=== PATIENT | female | born 1975 ===

== ENCOUNTER 2017-05-23 00:26 | Emergency (ER) | payer MEDICAID ==
[2017-05-23] MEDS ORDERED: Sodium Chloride 0.9% 1,000 ML IV STA (01:06)
[2017-05-23 01:26] LABS: BASO # 0.1 K/uL (0.0-0.2); BASO % 0.6 % (0.0-2.0); EOS # 0.3 K/uL (0.0-0.7); EOS % 3.4 % (0.0-4.0); HEMOGLOBIN 12.6 g/dL (11.0-16.0); LYMPH # 2.3 K/uL (1.0-4.3); LYMPH % 24.4 % (20.0-40.0); MEAN CELL VOLUME 89.1 fL (81.0-99.0); MEAN CORPUSCULAR HGB CONC 34.8 g/dL (33.0-37.0); MEAN PLATELET VOLUME 8.7 fL (7.2-11.7); MONO # 1.1 K/uL (0.0-0.8); NEUT # 5.6 K/uL (1.8-7.0); NEUT % 59.6 % (50.0-75.0); RBC 4.05 Mil/uL (3.80-5.20); RED CELL DISTRIBUTION WIDTH 13.8 % (11.5-14.5); WHITE BLOOD COUNT 9.4 K/uL (4.8-10.8)
[2017-05-23 01:34] LABS: ALBUMIN 3.7 g/dL (3.5-5.0); ALT/SGPT 23 U/L (9-52); AST/SGOT 30 U/L (14-36); BLOOD UREA NITROGEN 6 mg/dL (7-17); CALCIUM 8.4 mg/dl (8.6-10.4); GFR AFRICAN-AMERICAN > 60; GFR NON-AFRICAN AMERICAN > 60
[2017-05-23 03:42] LABS: SQUAMOUS EPITHIAL 1 /hpf (0-5); URINE AMORPHOUS SEDIMENT RARE /ul (<OCC); URINE BACTERIA RARE (<OCC); URINE BILIRUBIN NEGATIVE (NEGATIVE); URINE BLOOD 3+ (NEGATIVE); URINE CLARITY Hazy (Clear); URINE COLOR Yellow (YELLOW); URINE GLUCOSE (UA) NORMAL (Normal); URINE LEUKOCYTE ESTERASE NEG Leu/uL (Negative); URINE NITRATE NEGATIVE (NEGATIVE); URINE PROTEIN NEGATIVE (NEGATIVE); URINE UROBILINOGEN NORMAL mg/dL (0.2-1.0)
--- NOTE | 2017-05-23 04:24 | US ---
EXAM: US , Transvaginal CLINICAL HISTORY: 42 years old, female; Signs and symptoms; Lmp or gestational age (in weeks): Unknown/ qhcg---6022.00; Other: Preg/bleeding; ; Additional info: Vaginal bleeding, TECHNIQUE: Real-time transvaginal obstetrical ultrasound of the maternal pelvis and a first trimester with image documentation. Transvaginal imaging was used for better evaluation of the fetus and adnexa. COMPARISON: No relevant prior studies available. FINDINGS: The uterus measures approximately 13 x 8 x 8 cm. The cervix measures 4.4 cm. There is a large fluid-filled saclike structure within the uterus. No yolk sac or pole is identified. Assuming this represents a gestational sac, the diameter corresponds to a gestational age of 8 weeks 1 day. Hypoattenuating uterine fibroids are identified the largest measuring 2.4 cm in diameter. The maternal ovaries are identified and appear normal with a dominant follicle noted in the left ovary. Color flow and doppler vascular waveforms were demonstrated to both ovaries. There is no significant free fluid. IMPRESSION: Fluid-filled intrauterine sac without yolk sac or pole or heart rate. Diameters would correspond to a gestational age of 8 weeks 1 day. EXAM: US First Trimester, Transabdominal EXAM DATE/TIME: 05/23/2017 1:06 AM CLINICAL HISTORY: 42 years old, female; Signs and symptoms; Lmp or gestational age (in weeks): Unknown/ qhcg---6022.00; Other: Preg/bleeding; ; Additional info: Vaginal bleeding, TECHNIQUE: Real-time transabdominal obstetrical ultrasound of the maternal pelvis and a first trimester with image documentation. COMPARISON: No relevant prior studies available. FINDINGS: The uterus measures approximately 13 x 8 x 8 cm. The cervix measures 4.4 cm. There is a large fluid-filled saclike structure within the uterus. No yolk sac or pole is identified. Assuming this represents a gestational sac, the diameter corresponds to a gestational age of 8 weeks 1 day. Hypoattenuating uterine fibroids are identified the largest measuring 2.4 cm in diameter. The maternal ovaries are identified and appear normal with a dominant follicle noted in the left ovary. Color flow and doppler vascular waveforms were demonstrated to both ovaries. There is no significant free fluid.
--- NOTE | 2017-05-23 04:37 | C.PDOC ---
History Of Present Illness 42 year old female who is 13 weeks by date with a Hx of IDDM, presents to the ER with a complaint of pelvic cramps and vaginal bleeding since last night. Patient states she has not seen her [employer]PER[employer]OR [employer] for this yet and notes she recently moved from [facility]. Denies recent dizziness, trauma ,or injury. Chief Complaint (Nursing): Female Genitourinary History Per: Patient History/Exam Limitations: no limitations Onset/Duration Of Symptoms: Days Current Symptoms Are (Timing): Still Present Alleviating Factors: None Recent travel outside of the [place]: No Abnormal Vaginal Bleeding: Yes Past Medical History Reviewed: Historical Data, Nursing Documentation, Vital Signs Vital Signs: Last Vital Signs Temp 98.5 F 05/23/17 00:33 Pulse 100 H 05/23/17 00:33 Resp 16 05/23/17 00:33 BP 128/84 05/23/17 00:33 Pulse Ox 97 05/23/17 04:47 Family History: States: Unknown Family Hx - Social History Hx Alcohol Use: No Hx Substance Use: No - Immunization History Hx Tetanus Toxoid Vaccination: No Hx Influenza Vaccination: No Hx Pneumococcal Vaccination: No Review Of Systems Constitutional: Negative for: Fever, Chills Cardiovascular: Negative for: Chest Pain, Palpitations Respiratory: Negative for: Shortness of Breath Genitourinary: Positive for: Vaginal Bleeding, Pelvic Pain Neurological: Negative for: Dizziness Physical Exam - Physical Exam Appears: Non-toxic Skin: Normal Color, Warm, Dry Head: Atraumatic, Normacephalic Eye(s): bilateral: Normal Inspection Oral Mucosa: Moist Chest: Symmetrical, No Tenderness Cardiovascular: Rhythm Regular Respiratory: Normal Breath Sounds, No Rales, No Rhonchi, No Wheezing Gastrointestinal/Abdominal: Soft, Tenderness (Mild suprapubic), No Guarding, No Rebound Neurological/Psych: Oriented x3, Normal Speech ED Course And Treatment - Laboratory Results Result Diagrams: 05/23/17 01:17 05/23/17 01:17 O2 Sat by Pulse Oximetry: 97 (Room air) Pulse Ox Interpretation: Normal - CT Scan/US pelvic US Other Rad Studies (CT/US): Read By Radiologist, Radiology Report Reviewed CT/US Interpretation: EXAM: US , Transvaginal. CLINICAL HISTORY: 42 years old, female; Signs and symptoms; Lmp or gestational age (in weeks): Unknown/ qhcg---. 6022.00; Other: Preg/bleeding; ; Additional info: Vaginal bleeding, . TECHNIQUE: Real-time transvaginal obstetrical ultrasound of the maternal pelvis and a first trimester . with image documentation. Transvaginal imaging was used for better evaluation of the fetus and. adnexa. COMPARISON: No relevant prior studies available. FINDINGS: The uterus measures approximately 13 x 8 x 8 cm. The cervix measures 4.4 cm. There is a large fluid-filled saclike structure within the uterus. No yolk sac or pole is identified. Assuming this represents a gestational sac, the diameter corresponds to a gestational age of 8 weeks. 1 day. Hypoattenuating uterine fibroids are identified the largest measuring 2.4 cm in diameter. The maternal ovaries are identified and appear normal with a dominant follicle noted in the left. ovary. Color flow and doppler vascular waveforms were demonstrated to both ovaries. There is no significant free fluid. IMPRESSION: Fluid-filled intrauterine sac without yolk sac or pole or heart rate. Diameters would. correspond to a gestational age of 8 weeks 1 day. Progress Note: Blood work, urinalysis, and US ordered. IV fluids administered. Discussed US and lab results with patient and advised to follow up with PMD/OBGYN for further evaluation, patient understands and agrees with plan. Disposition - Disposition [facility] [Outside] Disposition: HOME/ ROUTINE Disposition Time: 04:50 Condition: STABLE Additional Instructions: Follow up with OBGYN within 2-3 days. Return to Ed immediately if feel worse. Instructions: First Trimester Vaginal Bleed (ED) Forms: [employer] ([place]gian) - Clinical Impression Clinical Impression: Vaginal bleeding affecting early - PA / PAPER SORTER / Resident Statement MD/DO has reviewed & agrees with the documentation as recorded. - Scribe Statement The provider has reviewed the documentation as recorded by the Scribe Pavel Mcdonough All medical record entries made by the Scribe were at my direction and personally dictated by me. I have reviewed the chart and agree that the record accurately reflects my personal performance of the history, physical exam, medical decision making, and the department course for this patient. I have also personally directed, reviewed, and agree with the discharge instructions and disposition.
[2017-05-23 05:30] VITALS: BP 102/68; PULSE 90; RESP 18; TEMP 99.8; O2SAT 96
== END 2017-05-23 05:37 | disposition home or self-care (01) ==
LOC: C.ER 00:26
DX: O20.9 Hemorrhage in early pregnancy, unspecified (principal); Z3A.08 8 weeks gestation of pregnancy
CPT/HCPCS: 76805; 76817; 80053; 81001; 84702; 85025; 86850; 86900; 96360; 99283; J7040